=== PATIENT | female | born 1955 | race Caucasian/White ===

== ENCOUNTER 2024-08-03 10:21 | Day surgery (SDC) | payer MEDICARE, SELFPAY ==
[2024-08-03] VITALS (8 sets, daily range): BP systolic 106–124; BP diastolic 47–57; PULSE 80–99; RESP 16–20; TEMP 36.4–37.1; O2SAT 94–100; BMI 27.6
[2024-08-03 11:11] LABS: Bedside Glucose 142 mg/dL (74-106)
--- NOTE | 2024-08-03 11:26 | PRE.ANES_ITS ---
ASA Classification* ASA Classification ASA Classification: 2 Assessment & Plan Anesthesia* Anesthesia Assessment Anesthesia Assessment: Discussed sedation and/or anesthesia options, risks, benefits, and alternatives with patient/parents/legal guardian/POA. Questions invited. The patient/parents/legal guardian/POA seems to understand and agrees to proceed with anesthesia plan. Reviewed the physical assessment, medical history, allergy history and patient home medications list prior to surgery/procedure/anesthetic and documented any changes. Performed airway and anesthesia risk assessments. Anesthesia Type Anesthesia Type: MAC History Source History Obtained from:: Patient and Chart Anesthesia Focused Assessment* Temperature: 97.6 F Pulse Rate: 99 Blood Pressure: 124/47 Respiratory Rate: 16 Pulse Ox: 99 Oxygen Delivery Method: Room Air Airway Assessment Mouth opens: >3 cm Mallampati Score: I Teeth Condition: Missing (Patient has 1 missing molar left lower jaw. Rest of the teeth are tight.) Neck Range of motion (ROM): Limited ROM (Somewhat decreased extension) Focused Labs Anesthesia Preop lab: CBC WBC 7.0 k/mm3 (4.4-11.0) 11/09/12 11:00 RBC 4.65 M/mm3 (4.2-5.4) 11/09/12 11:00 Hgb 14.4 g/dl (12.0-15.0) 11/09/12 11:00 Hct 43.2 % (37-47) 11/09/12 11:00 Plt Count 237 K/mm3 (150-450) 11/09/12 11:00 CHEMISTRY Potassium 3.7 mmol/L (3.5-5.1) 11/09/12 11:00 Sodium 138 mmol/L (136-145) 11/09/12 11:00 BUN 14 mg/dL (7-18) 11/09/12 11:00 Creatinine 0.5 mg/dL (0.6-1.0) L 11/09/12 11:00 Glucose 125 mg/dL (70-110) H 11/09/12 11:00 POC Glucose 142 mg/dL (74-106) H 08/03/24 10:42 COAG Pre-Assessment Diagnosis/Proposed Procedure Planned Operative Procedure(s): Battery Change,Spinal Cord Stimulator Anesthesia History 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 When Was Last Pacemaker Check QUESTION #4 FULL TEXT: You/Your Family Experience fever (hyperthermia) with Anesthesia Last Oral Intake Last Oral intake: Last Oral Intake NPO since 00:00 08/03/24 10:40 Meds taken in AM with sips of Yes 08/03/24 10:40 water? Meds patient instructed to take am of surgery PONV PONV - sales training manager: PONV - sales training manager Female Yes 07/27/24 15:51 HX of Motion Sickness No 07/27/24 15:51 HX of N/V After Surgery No 07/27/24 15:51 Non-Smoker Yes 07/27/24 15:51 Duration of Surgery greater No 07/27/24 15:51 than 60 minutes Number of Risk Factors 2 07/27/24 15:51 PONV Score Moderate Risk 07/27/24 15:51 Height & Weight Height & Weight: Anesthesia: Height & Weight Height 5 ft 7 in 08/03/24 10:40 Weight: 80.195 kg 08/03/24 10:40 Body Mass Index (BMI) 27.6 08/03/24 10:40 Respiratory Assessment Respiratory Assessment - sales training manager: Respiratory Tract Infection Hx - sales training manager Hx Respiratory Tract Infection No 07/27/24 15:51 STOP Sleep Apnea STOP Sleep Apnea - sales training manager: STOP Sleep Apnea - sales training manager Hx Hypertension No 07/27/24 15:51 Hx Sleep Apnea Yes 07/27/24 15:51 CPAP Yes 07/27/24 15:51 BIPAP No 07/27/24 15:51 Do you snore loudly (louder than talking or can be heard Do you often feel tired/ fatigued/ sleepy during daytime? Has anyone observed you stop breathing during sleep? STOP Results Positive 07/27/24 15:51 QUESTION #5 FULL TEXT : Do you snore loudly (louder than talking or can be heard through closed doors)? 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 Specify any problems Hx of Preganancy in last 3 No 07/27/24 15:51 Months Nurse Filling Out Transfusion VCHRISTIN 07/27/24 15:51 & Questions: Date: 07/27/24 07/27/24 15:51 Time: 15:53 07/27/24 15:51 Patient unable to answer at this time (ie. confused, unrespo /Reproduction History /Reproductive History - sales training manager: /Reproductive Hx- sales training manager Hx Now Gestational Age (in weeks): EDC: Hx Hx Para Hx Section SAB Active Medications Active Medications: Current Medications Generic Name Dose Route Start Last Admin Trade Name Freq PRN Reason Stop Dose Admin Sodium Chloride 1,000 mls @ 15 mls/hr 08/03/24 10:35 IV 08/08/24 23:54 .Q48H KENNA Protocol Cefazolin Sodium 2 gm/ N/A 20 mls @ 400 mls/hr 08/03/24 12:00 IV 08/03/24 12:02 PREOP ONE PFSH Medical History Wears glasses Thyroid disease Insulin dependent diabetes mellitus Diabetes Arthritis Anemia DVT (deep venous thrombosis) Back pain Injury of back Restless legs History of IBS Gastric reflux Non-smoker CPAP (continuous positive airway pressure) dependence Sleep apnea Home Medications ?Medication ?Instructions ?Recorded ?Last Taken ?Type atorvastatin 40 mg tablet 40 mg PO QHS 03/23/16 08/02/24 History gabapentin 300 mg capsule 300 mg PO 4X/DAY 03/23/16 08/03/24 History levothyroxine 100 mcg tablet 100 mcg PO DAILY 03/23/16 08/03/24 History metformin 500 mg tablet 1,000 mg PO TIDCM 03/23/16 08/02/24 History aspirin 81 mg capsule 81 mg PO DAILY 07/27/24 07/27/24 History buspirone 5 mg tablet 5 mg PO BID 07/27/24 08/02/24 History celecoxib 200 mg capsule 200 mg PO BID 07/27/24 08/02/24 History citalopram 40 mg tablet 40 mg PO DAILY 07/27/24 08/02/24 History clonazepam 0.5 mg tablet 0.25 mg PO QHS 07/27/24 08/02/24 History empagliflozin 25 mg tablet 25 mg PO DAILY 07/27/24 07/30/24 History (Jardiance) ferrous sulfate 325 mg (65 mg 325 mg PO QODAY 07/27/24 08/02/24 History iron) tablet insulin aspart U-100 100 unit/mL 7 unit subcut TID 07/27/24 08/02/24 History (3 mL) subcutaneous pen (Novolog FlexPen U-100 Insulin aspart) insulin degludec 100 unit/mL (3 14 unit subcut QHS 07/27/24 08/02/24 History mL) subcutaneous pen (Tresiba FlexTouch U-100 insulin) omeprazole 40 mg capsule,delayed 40 mg PO DAILY 07/27/24 08/03/24 History release trazodone 100 mg tablet 200 mg PO QHS 07/27/24 08/02/24 History Allergy/AdvReac Type Severity Reaction Status Date / Time etodolac Allergy Severe PT UNSURE Verified 08/03/24 10:39 OF REACTION semaglutide (From Ozempic) Allergy Severe HIVES Verified 08/03/24 10:39 Surgical History History of back surgery History of laparoscopic cholecystectomy Hx of hysterectomy Hx of surgical procedure Social History Smoking Status: Never smoker Review of Systems (Anesthesia) ROS Narrative System reviewed and no additional complaints, except as documented.
--- NOTE | 2024-08-03 12:00 | FORE_PTH ---
PATIENT: FABI GRAMAJO [place] [facility] [place][id number] AGE/SX: 69/F ROOM: RE08/03/[address]: Dr. Cherry Diaz MD : 1955 BED: DIS: 08/03/2024 SPEC #: [id number] RECD: 08/03/24 13:55 STATUS: DOMITILA REQ #: [id number] RADHA: 08/03/24 12:[address]: Cherry Diaz DEPT: SURGICAL PATHOLOGY RECD BY: Yasmani Graves ENTERED: 08/03/24 14:31 SP TYPE: FOREIGN B OTHR DR: Dr. Silver Capps MD Tissues: FOREIGN BODY Procedures: Surgery Specimen Level I HEADER OPERATION: Battery change, spinal cord stimulator PRE-OP DIAGNOSIS: Exhausted spinal cord stimulator battery TISSUE SUBMITTED: End of life battery MICROSCOPIC DIAGNOSIS A metallic battery (gross only). SJ.mr 08/03/2024 MICROSCOPIC DESCRIPTION Slides are reviewed. GROSS DESCRIPTION Received in fixative is one container labeled with the patient's name and designated End of life battery. The specimen consists of a metallic battery measuring 5.5 x 4.5 x 0.5cm. Inscription on the battery says Prot?g? MRI upgradeable technology, next line, S/N: [id number], [id number]. The specimen is for gross identification only. 08/03/2024 CPT:85354
[2024-08-03] MEDS: Cefazolin 2 GM in Syringe IV (12:15)
[2024-08-03] MEDS: Bupivacaine 0.25% 30 ML Vial (12:34)
[2024-08-03] MEDS: Lidocaine 1% /Epi 1:100 (20ml) 20 ML Vial (12:34)
--- NOTE | 2024-08-03 12:56 | PCM.POST.ANE ---
Anesthesia: Postop Eval I Current Vital Signs Temperature: 98.8 F Pulse Rate: 91 Blood Pressure: 117/54 Respiratory Rate: 20 Pulse Ox: 96 Assessment Airway patent: Yes Spontaneous unlabored respirations: Yes nausea: No Vomiting: No Anesthesia Complication: No Fluid Hydration Crystalloid volume administer (ml): 300 Total IV fluid infused: 300 Progress Note Anesthesia document: Postop Eval 1 completed: Yes
--- NOTE | 2024-08-03 21:23 | POSTOPAN2_ITS ---
Anesthesia Postop Eval I Sum Postop Eval Completion status Anesthesia document: Postop Eval 1 completed: Yes Anesthesia Postop Eval I Summary Anesthesia Postop Eval I Summary: Anesthesia Postop Eval I: Assessment Summary Airway patent Yes 08/03/24 12:56 MANAGER [email or web address] Spontaneous unlabored Yes 08/03/24 12:56 MANAGER [email or web address] respirations Mental status nausea No 08/03/24 12:56 MANAGER [email or web address] Vomiting No 08/03/24 12:56 MANAGER [email or web address] Anesthesia Postop Eval I: Fluid Summary Crystalloid volume administer 300 08/03/24 12:56 MANAGER [email or web address] (ml) Colloids volume administered ( ml) Blood Product volume administered (ml) Total IV fluid infused 300 08/03/24 12:56 MANAGER [email or web address] Anesthesia Postop Eval I: Summary Notes Anesthesia Complication No 08/03/24 12:56 MANAGER [email or web address] Anesthesia Complication Comment: Post-operative progress note Anesthesia: Postop Eval II Evaluation Mental status: Awake and Calm Pain Level: 1 nausea: No Vomiting: No Complications Anesthesia Complication: No
--- NOTE | 2024-08-03 21:23 | PCM.POSTANE2 ---
Anesthesia Postop Eval I Sum Postop Eval Completion status Anesthesia document: Postop Eval 1 completed: Yes Anesthesia Postop Eval I Summary Anesthesia Postop Eval I Summary: Anesthesia Postop Eval I: Assessment Summary Airway patent Yes 08/03/24 12:56 ASSOCIATE DEAN OF [email or web address] Spontaneous unlabored Yes 08/03/24 12:56 ASSOCIATE DEAN OF [email or web address] respirations Mental status nausea No 08/03/24 12:56 ASSOCIATE DEAN [email or web address] Vomiting No 08/03/24 12:56 ASSOCIATE DEAN [email or web address] Anesthesia Postop Eval I: Fluid Summary Crystalloid volume administer 300 08/03/24 12:56 ASSOCIATE DEAN [email or web address] (ml) Colloids volume administered ( ml) Blood Product volume administered (ml) Total IV fluid infused 300 08/03/24 12:56 ASSOCIATE DEAN [email or web address] Anesthesia Postop Eval I: Summary Notes Anesthesia Complication No 08/03/24 12:56 ASSOCIATE DEAN OF [email or web address] Anesthesia Complication Comment: Post-operative progress note Anesthesia: Postop Eval II Evaluation Mental status: Awake and Calm Pain Level: 1 nausea: No Vomiting: No Complications Anesthesia Complication: No
== END 2024-08-03 14:52 | disposition home or self-care (01) ==
LOC: SDC 10:25 → AC 10:26
PROVIDERS: PCP Family Medicine; Referring Provider Anesthesiology Pain Medicine; Visit Provider Anesthesiology Pain Medicine
PROC: (CPT 63688; principal; 2024-08-03 11:45)
DX: Z45.49 Encounter for adjustment and management of other implanted nervous system device (principal); E11.9 Type 2 diabetes mellitus without complications; M54.16 Radiculopathy, lumbar region; G89.29 Other chronic pain; I10 Essential (primary) hypertension; E03.9 Hypothyroidism, unspecified; Z90.49 Acquired absence of other specified parts of digestive tract; Z90.710 Acquired absence of both cervix and uterus
CPT/HCPCS: 63688; 00400; 82962; 88300

== ENCOUNTER → 2024-11-28 | Outpatient (CLI) | payer MEDICARE, SELFPAY ==
[2024-11-28 16:48] LABS: Absolute Lymphocyte Count 3.97 X10^3/uL (0.83-4.51); Absolute Neutrophil Count 3.7 X10^3/uL (2.0-7.7); Basophil# 0.05 X10^3/uL; Basophil% 0.6 % (0-1); Eosinophil# 0.31 X10^3/uL; Eosinophils% 3.6 % (0-5); Hematocrit 47.1 % (37-47); Lymphocyte # 3.97 X10^3/ul (0.83-4.51); Lymphocyte % 46.3 % (19-41); Mean Corp Hgb Conc 31.8 g/dL (32-36); Mean Corpuscular Hgb 28.8 pg (27.0-32.0); Mean Corpuscular Volume 90.4 fL (81-99); Mean Platelet Vol. 10.4 fl (6.2-12.0); Monocyte# 0.52 X10^3/uL; Monocyte% 6.1 % (0-10); NRBC Flagged by Analyzer 0 % (0-5); Neutrophil # 3.69 X10^3/uL (2.7-7.7); Platelet Count 208 K/mm3 (150-450); RBC Distribution Width CV 18.2 % (11.6-14.6); RBC Distribution Width SD 60.1 fl (35.1-43.9); Red Blood Count 5.21 M/mm3 (4.2-5.4); White Blood Count 8.6 K/mm3 (4.4-11.0)
[2024-11-28 17:49] LABS: Microalbumin,Random Urine < 12.0 mg/L (NO RANGE EST.); Microalbumin:Creatinine Ratio UNABLE TO CALCULATE mg/g CRE
[2024-11-28 18:04] LABS: Cholesterol 193 mg/dL (<=200); Hepatitis C Antibody Nonreactive (Nonreactive); High Density Lipoprotein 51 mg/dL; Low Density Lipoprotein Calc. 99 mg/dL; Triglycerides 217 mg/dL; Very Low Density Lipoprotein 43 mg/dL (5-40); cholesterol:hdl ratio screen 3.78
[2024-11-28 18:06] LABS: ALB/GLOB Ratio 1.5 RATIO (0.9-2.4); AST(SGOT) 28 U/L (<=31); Alanine Aminotransfer ALT/SGPT 30 U/L (<=34); Albumin, Serum 4.5 g/dL (3.4-4.8); Alkaline Phosphatase 63 U/L (35-104); Anion Gap 14 (5-15); BUN 17 mg/dL (4-19); BUN/Creat Ratio 28.3 RATIO (10-20); Calcium,Total 9.8 mg/dL (7.6-11.0); Carbon Dioxide 23.7 mmol/L (21.0-32.0); Chloride 102 mmol/L (98-108); Creatinine, Serum 0.58 mg/dL (0.70-1.20); EST Glomerular Filtration Rate 97 (>60); Globulin 2.9 g/dL (2.2-4.2); Glucose 107 mg/dL (70-99); Protein, Total 7.4 g/dL (5.9-8.4); Sodium Level 140 mmol/L (133-145); Total Bilirubin 0.18 mg/dL (0.00-1.30)
[2024-11-28 19:10] LABS: Hemoglobin A1c 8.2 % (<=5.6)
== END | disposition home or self-care (01) ==
LOC: LAB 15:33
PROVIDERS: PCP Family Medicine; Referring Provider Family Medicine Geriatric Medicine; Visit Provider Family Medicine Geriatric Medicine
DX: E78.5 Hyperlipidemia, unspecified (principal); E11.65 Type 2 diabetes mellitus with hyperglycemia; E03.9 Hypothyroidism, unspecified; Z13.89 Encounter for screening for other disorder
CPT/HCPCS: 36415; 80053; 80061; 82043; 82570; 83036; 84443; 85025; 86803

== ENCOUNTER → 2025-02-27 | Outpatient (CLI) | payer MEDICARE, SELFPAY ==
[2025-02-27 12:56] LABS: Hematocrit 47.9 % (37-47); Hemoglobin 15.8 g/dL (12.0-15.0); Immature Granulocytes Count 0.020 X10^3/uL (0.0-0.0); Mean Corp Hgb Conc 33.0 g/dL (32-36); Mean Corpuscular Volume 96.2 fL (81-99); Mean Platelet Vol. 9.9 fl (6.2-12.0); NRBC Flagged by Analyzer 0 % (0-5); Platelet Count 252 K/mm3 (150-450); RBC Distribution Width CV 14.6 % (11.6-14.6); RBC Distribution Width SD 52.1 fl (35.1-43.9); Red Blood Count 4.98 M/mm3 (4.2-5.4); White Blood Count 8.6 K/mm3 (4.4-11.0)
[2025-02-27 13:49] LABS: AST(SGOT) 21 U/L (<=31); Alanine Aminotransfer ALT/SGPT 24 U/L (<=34); Albumin, Serum 4.8 g/dL (3.4-4.8); Alkaline Phosphatase 57 U/L (35-104); Anion Gap 13 (5-15); BUN 16 mg/dL (4-19); BUN/Creat Ratio 28.0 RATIO (10-20); Calcium,Total 9.9 mg/dL (7.6-11.0); Carbon Dioxide 23.8 mmol/L (21.0-32.0); Chloride 102 mmol/L (98-108); Globulin 2.8 g/dL (2.2-4.2); Glucose 109 mg/dL (70-99); Potassium 4.6 mmol/L (3.3-5.1); Vitamin D,25 Hydroxy 85.7 ng/mL (30-100)
== END | disposition home or self-care (01) ==
LOC: LAB 12:29
PROVIDERS: PCP Family Medicine Geriatric Medicine; Referring Provider Family Medicine Geriatric Medicine; Visit Provider Family Medicine Geriatric Medicine
DX: E11.65 Type 2 diabetes mellitus with hyperglycemia (principal); R53.83 Other fatigue; E55.9 Vitamin D deficiency, unspecified
CPT/HCPCS: 36415; 80053; 82306; 84443; 85025

== ENCOUNTER → 2025-03-27 | Outpatient (CLI) | payer MEDICARE, SELFPAY | END | disposition home or self-care (01) | LOC: POLAB3 10:58 | PROVIDERS: PCP Family Medicine Geriatric Medicine; Visit Provider Family Medicine Geriatric Medicine | DX: R68.83 Chills (without fever) (principal) | CPT/HCPCS: 87631 ==

== ENCOUNTER → 2025-05-29 | Outpatient (CLI) | payer MEDICARE, SELFPAY ==
[2025-05-29 13:05] LABS: Hematocrit 47.4 % (37-47); Hemoglobin 15.9 g/dL (12.0-15.0); Immature Granulocytes Count 0.020 X10^3/uL (0.0-0.0); Mean Corp Hgb Conc 33.5 g/dL (32-36); Mean Corpuscular Volume 94.8 fL (81-99); Mean Platelet Vol. 10.2 fl (6.2-12.0); NRBC Flagged by Analyzer 0 % (0-5); Platelet Count 251 K/mm3 (150-450); RBC Distribution Width CV 12.9 % (11.6-14.6); RBC Distribution Width SD 44.8 fl (35.1-43.9); Red Blood Count 5.00 M/mm3 (4.2-5.4); White Blood Count 8.1 K/mm3 (4.4-11.0)
[2025-05-29 13:52] LABS: AST(SGOT) 24 U/L (<=31); Alanine Aminotransfer ALT/SGPT 29 U/L (<=34); Albumin, Serum 4.6 g/dL (3.4-4.8); Alkaline Phosphatase 77 U/L (35-104); Anion Gap 11 (5-15); BUN 22 mg/dL (4-19); BUN/Creat Ratio 39.3 RATIO (10-20); Calcium,Total 9.8 mg/dL (7.6-11.0); Carbon Dioxide 24.8 mmol/L (21.0-32.0); Chloride 102 mmol/L (98-108); Globulin 2.8 g/dL (2.2-4.2); Glucose 146 mg/dL (70-99); Potassium 4.3 mmol/L (3.3-5.1); Vitamin D,25 Hydroxy 70.8 ng/mL (30-100)
[2025-05-29 20:14] LABS: Xtra Tube Kwok EXTRA TUBE
== END | disposition home or self-care (01) ==
LOC: LAB 12:12
PROVIDERS: PCP Family Medicine Geriatric Medicine; Referring Provider Family Medicine Geriatric Medicine; Visit Provider Family Medicine Geriatric Medicine
DX: E11.65 Type 2 diabetes mellitus with hyperglycemia (principal); R53.83 Other fatigue; E55.9 Vitamin D deficiency, unspecified
CPT/HCPCS: 36415; 80053; 82306; 84443; 85025